=== PATIENT | female | born 1935 | race Caucasian/White ===

== ENCOUNTER → 2017-01-04 | Outpatient (CLI) | payer MEDICARE ==
[~2017-01-04] MED LIST: ATENOLOL25 MG; BETA CAROTENE PO; CALCIUM 500 + D1 TAB PO; CALCIUM 500 +1 EAC1 PO; CALCIUM 600 W/V1 TA2; CALCIUM PO; FISH OIL 1,0001 CAP PO; FISH OIL 1,2001 CAP PO; FISH OIL500 MG PO; FLEXERIL PO; FLONASE ALLERG9.9 ML; GLUCOSAMINE500 M1 PO; HYDROCHLOROTHIA25 MG PO; HYDROCODONE-APA1 T58 PO; L-LYSINE PO; L-LYSINE500 M2 PO; LYSINE PO; MELOXICAM15 MG PO; MULTI-VITAMIN1 EAC1 PO; MULTI-VITAMIN1 TAB PO; MULTIPLE VITAMI1 T11 PO; NABUMETONE500 MG PO; OMEGA 3-6-9 11200 M1 PO; ONE DAILY WOME1 EAC2 PO; ORUDIS75 M1 PO; PREDNISONE PO; PRILOSEC20 MG; PROTONIX PO; TENORETIC 50 TA1 TAB PO; TENORETIC PO; TENORMIN25 MG PO; TYLENOL #3 PO; TYLOX1 CAP 5/50 PO; VIT E PO; VITAM PO; VITAMIN C PO; VITAMIN C500 M1 PO; VITAMIN E400 UNI1 PO; VITAMIN E400 UNI2 PO; ZINC PO; ZINC30 MG PO; ZINC50 M1 PO
--- NOTE | ~2017-01-04 | CT2 ---
[facility] A Service of [facility] & [facility] / [facility] RADIOLOGY TEXT RESULTS PATIENT: AL ESTEVES LOCATION: [facility] : 37 UNIT #: [id number] AGE: [address]: Pacheco Villatoro MD SEX: F ORDER DR: [id number] [place] [id number] O MR#: [id number] Acc #: [id number] NAME: AL ESTEVES : 1935 SEX: F STUDY DATE/TIME: 01/04/2017 13:06 UNIT: [facility] ROOM: STUDY DESCRIPTION: CT Abd and Pelv W Cont Attending Physician: Pacheco Villatoro M.D. Referring Physician: Pacheco Villatoro M.D. Ordering Physician: Pacheco Villatoro M.D. Primary Care Physician: Jerry Hudson M.D. MEDICAL IMAGING REPORT This report is preliminary unless electronic signature is present. EXAM CT of the abdomen and pelvis. INDICATIONS Rectal cancer. Patient has been treated with chemotherapy and radiation in November 2015. She denies any current complaints. This exam is requested for subsequent treatment strategy. TECHNIQUE Axial CT images were obtained from the dome of the diaphragm through the symphysis pubis following administration of oral and intravenous contrast material. FINDINGS This patient has a stable noncalcified pulmonary nodules seen within the left lower lobe, measuring about 8 mm in size. This has been unchanged since September 2015. There is a small hiatal hernia. Stomach and proximal small bowel are within normal limits, as are the adrenal glands and liver. Gallbladder is probably within normal limits. Calcified granulomata are seen within the spleen. Pancreas is atrophic. Patient does have some dilatation of the common bile duct, measuring up to 1.3 cm. Similar findings were present in September 2015, and I suspect this is probably not significantly changed. Kidneys appear unremarkable. There is atherosclerotic involvement of the abdominal aorta. I do not see any free fluid or adenopathy within the abdomen. There is no evidence of mechanical bowel obstruction. Uterus is surgically absent. Urinary bladder appears unremarkable. There has been proliferation of the pelvic fat, which is stable when compared to May 2015 and is likely related to the patient's radiation therapy. No free fluid or adenopathy is seen within the pelvis. Review of bony windows are does not demonstrate any aggressive osseous STS. [facility] A Service of [facility] & [facility] / [facility] RADIOLOGY TEXT RESULTS PATIENT: AL ESTEVES LOCATION: [facility] : 37 UNIT #: [id number] AGE: [address]: Pacheco Villatoro MD SEX: F ORDER DR: abnormalities. 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 IMPRESSION 1. No convincing evidence of recurrent or residual disease. 2. Stable 8-mm nodule within the left lower lobe, unchanged since September 2015, and favored to be benign. Followup CT in September 2017 is recommended to document a full 2 years of stability. 3. The patient's common bile duct is dilated. This has been seen on prior exams dating back to at least September of 2015 and is probably stable. I suspect this may be related to some age related change, but certainly, correlation with liver function tests is suggested. 4. Proliferation of the patient's pelvic fat. This is likely related to history of radiation therapy. I do not see any evidence of obstruction. 5. Please see the body of the report for any other additional incidental findings. Dictated by... Krystin Deutsch M.D. THIS IS AN ELECTRONICALLY VERIFIED REPORT Krystin Deutsch M.D. at 01/04/2017 6:55 PM AFF/js TD: 01/04/2017 17:55 JOB #: [id number] MEDICAL IMAGING REPORT Page 1 of 1
[2017-01-04 11:46] LABS: POC - CREATININE 0.86 mg/dL (0.44-1.03); POC - GFR >60.0 mL/min (>60)
== END | disposition home or self-care (01) ==
LOC: SCT 11:06
PROVIDERS: Internal Medicine Medical Oncology
DX: Z08 Encounter for follow-up examination after completed treatment for malignant neoplasm (principal); R91.1 Solitary pulmonary nodule; K83.8 Other specified diseases of biliary tract; Z85.048 Personal history of other malignant neoplasm of rectum, rectosigmoid junction, and anus
CPT/HCPCS: 74177; 82565; Q9967